=== PATIENT | female | born 1990 | race Caucasian/White ===

== ENCOUNTER 2016-10-26 23:54 | Emergency (ER) | payer SELFPAY ==
[~2016-10-26 23:54] MED LIST: PRENATAL COMPLE1 TAB PO; TYLENOL PM1 TAB PO
== END 2016-10-27 01:00 | disposition left against medical advice (07) ==
LOC: D.ER 23:54
DX: R10.30 Lower abdominal pain, unspecified (principal)

== ENCOUNTER 2017-02-02 17:32 | Emergency (ER) | payer MEDICAID ==
[2015-06-29 22:05] VITALS: BMI 23.4
[2017-02-02 18:42] LABS: BASOPHILS 0.2 % (0-2); EOSINOPHILS 0.5 % (0-7); HEMATOCRIT 41.1 % (36.0-48.0); HEMOGLOBIN 13.6 g/dL (12-16); IMMATURE GRANULOCYTES 0.2 % (0-5); LYMPHOCYTES 13.9 % (15-50); MCH 28.1 pg (26.0-34.0); MCHC 33.1 g/dL (31.0-37.0); MCV 84.9 fL (80.0-100.0); MEAN PLATELET VOLUME 12.1 fL (7.4-10.4); MONOCYTES 4.7 % (2-11); NEUTROPHILS 80.5 % (40-80); PLATELET COUNT 226 10x3/uL (130-400); RBC 4.84 10x6/uL (4.00-5.40); RDW 14.7 % (11.5-14.5)
[2017-02-02 18:50] LABS: ALBUMIN 3.9 g/dL (3.4-5.0); ALKALINE PHOSPHATASE 94 U/L (46-116); ALT (SGPT) 19 U/L (10-68); BILIRUBIN - TOTAL 0.43 mg/dL (0.2-1.3); CALC OSMOLALITY 277 mosm/kg (275-300); CALCIUM 8.8 mg/dL (8.5-10.1); CARBON DIOXIDE 26.7 mmol/L (21.0-32.0); CHLORIDE - SERUM 102 mmol/L (98-107); CREATININE - SERUM 0.9 mg/dL (0.6-1.3); GLUCOSE 94 mg/dL (74-106); SODIUM 139 mmol/L (136-145); UREA NITROGEN 13 mg/dL (7-18); eGFR NON AFRICAN AMERICAN 80 mL/min (90-120)
[2017-02-02 18:54] LABS: POTASSIUM - SERUM 2.8 mmol/L (3.5-5.1)
== END 2017-02-02 20:30 | disposition home or self-care (01) ==
LOC: D.ER 17:32
PROVIDERS: Physician Assistant Medical
DX: J06.9 Acute upper respiratory infection, unspecified (principal); R09.89 Other specified symptoms and signs involving the circulatory and respiratory systems; J34.89 Other specified disorders of nose and nasal sinuses; R06.2 Wheezing; R06.00 Dyspnea, unspecified; R51 Headache; F17.200 Nicotine dependence, unspecified, uncomplicated

== ENCOUNTER 2017-04-02 09:03 | Emergency (ER) | payer MEDICAID ==
[2015-06-29 22:05] VITALS: BMI 23.4
== END 2017-04-02 10:52 | disposition home or self-care (01) ==
LOC: D.ER 09:03
DX: S93.602A Unspecified sprain of left foot, initial encounter (principal); Y04.2XXA Assault by strike against or bumped into by another person, initial encounter; Y93.89 Activity, other specified; Y92.029 Unspecified place in mobile home as the place of occurrence of the external cause; F17.200 Nicotine dependence, unspecified, uncomplicated

== ENCOUNTER 2017-07-07 16:51 | Emergency (ER) | payer MEDICAID ==
[2015-06-29 22:05] VITALS: BMI 23.4
== END 2017-07-07 19:45 | disposition home or self-care (01) ==
LOC: D.ER 16:51
DX: J11.1 Influenza due to unidentified influenza virus with other respiratory manifestations (principal); R05 Cough; J45.909 Unspecified asthma, uncomplicated

== ENCOUNTER 2017-08-01 17:51 | Emergency (ER) | payer MEDICAID ==
[2015-06-29 22:05] VITALS: BMI 23.4
== END 2017-08-01 20:52 | disposition home or self-care (01) ==
LOC: D.ER 17:51
DX: S93.602A Unspecified sprain of left foot, initial encounter (principal); X58.XXXA Exposure to other specified factors, initial encounter; Y93.89 Activity, other specified; Y92.39 Other specified sports and athletic area as the place of occurrence of the external cause; S93.402A Sprain of unspecified ligament of left ankle, initial encounter

== ENCOUNTER → 2017-08-13 12:41 | Outpatient (CLI) | payer MEDICAID ==
[2015-06-29 22:05] VITALS: BMI 23.4
[2017-08-13 13:28] LABS: HEMATOCRIT 40.9 % (36.0-48.0); HEMOGLOBIN 13.4 g/dL (12-16); MCH 27.6 pg (26.0-34.0); MCHC 32.8 g/dL (31.0-37.0); MCV 84.2 fL (80.0-100.0); MEAN PLATELET VOLUME 11.6 fL (7.4-10.4); PLATELET COUNT 227 10x3/uL (130-400); RBC 4.86 10x6/uL (4.00-5.40); RDW 15.1 % (11.5-14.5)
[2017-08-13 14:50] LABS: ERYTHROCYTE SEDIMENTATION RATE 5 mm/hr (0-20)
[2017-08-14 11:18] LABS: ANA REFLEX - DIRECT Negative (Negative)
== END | disposition home or self-care (01) ==
LOC: D.LAB 12:41
PROVIDERS: Orthopaedic Surgery
DX: M13.0 Polyarthritis, unspecified (principal)

== ENCOUNTER → 2017-08-22 12:37 | Outpatient (CLI) | payer MEDICAID ==
[2015-06-29 22:05] VITALS: BMI 23.4
== END | disposition home or self-care (01) ==
LOC: D.MRI 08-20 13:00
DX: M25.572 Pain in left ankle and joints of left foot (principal); M25.372 Other instability, left ankle

== ENCOUNTER 2018-05-29 12:52 | Emergency (ER) | payer MEDICAID ==
[~2018-05-29] VITALS: Ht 158.8 cm; Wt 64.1 kg
[2018-05-29 13:48] VITALS: Ht 158.8 cm; Wt 64.1 kg
[2018-05-29 14:40] LABS: BASOPHILS 0.3 % (0-2); EOSINOPHILS 1.9 % (0-7); HEMATOCRIT 40.5 % (36.0-48.0); HEMOGLOBIN 13.6 g/dL (12-16); IMMATURE GRANULOCYTES 0.2 % (0-5); LYMPHOCYTES 24.4 % (15-50); MCH 29.5 pg (26.0-34.0); MCHC 33.6 g/dL (31.0-37.0); MCV 87.9 fL (80.0-100.0); MEAN PLATELET VOLUME 11.3 fL (7.4-10.4); MONOCYTES 6.8 % (2-11); NEUTROPHILS 66.4 % (40-80); PLATELET COUNT 236 10x3/uL (130-400); RBC 4.61 10x6/uL (4.00-5.40); RDW 13.2 % (11.5-14.5); WBC 6.3 10x3/uL (4.8-10.8)
[2018-05-29 14:51] LABS: APPEARANCE CLEAR (CLEAR); BILIRUBIN NEGATIVE (NEGATIVE); COLOR YELLOW (YELLOW); GLUCOSE NEGATIVE (NEGATIVE); KETONE NEGATIVE (NEGATIVE); NITRITE NEGATIVE (NEGATIVE); PROTEIN NEGATIVE (NEGATIVE); SPECIFIC GRAVITY 1.015 (1.005-1.020); UROBILINOGEN NORMAL (NORMAL)
[2018-05-29 14:53] LABS: ALBUMIN 3.7 g/dL (3.4-5.0); ALKALINE PHOSPHATASE 72 U/L (46-116); ALT (SGPT) 20 U/L (10-68); AMYLASE - SERUM 54 U/L (25-115); BILIRUBIN - TOTAL 0.42 mg/dL (0.2-1.3); CALC OSMOLALITY 274 mosm/kg (275-300); CALCIUM 8.7 mg/dL (8.5-10.1); CHLORIDE - SERUM 101 mmol/L (98-107); CREATININE - SERUM 0.6 mg/dL (0.6-1.3); GLUCOSE 84 mg/dL (74-106); LIPASE 90 U/L (73-393); POTASSIUM - SERUM 3.8 mmol/L (3.5-5.1); PROTEIN - SERUM 7.1 g/dL (6.4-8.2); SODIUM 138 mmol/L (136-145); UREA NITROGEN 12 mg/dL (7-18); eGFR NON AFRICAN AMERICAN > 90 mL/min (90-120)
[2018-05-29] MEDS ORDERED: COMPAZINE5 MG PO (20:19)
[2018-05-29] MEDS ORDERED: BENTYL 20 MG TA20 MG PO (20:19)
[2018-05-29] MEDS ORDERED: VOLTAREN75 MG PO (20:47)
[2018-05-29 21:29] VITALS: BP 116/72
== END 2018-05-29 21:29 | disposition home or self-care (01) ==
LOC: D.ER 12:52
PROVIDERS: Family Medicine
DX: N85.8 Other specified noninflammatory disorders of uterus (principal); F17.200 Nicotine dependence, unspecified, uncomplicated

== ENCOUNTER 2018-06-16 10:30 | Day surgery (SDC) | payer MEDICAID ==
[2018-06-13 13:07] LABS: BASOPHILS 0.3 % (0-2); EOSINOPHILS 2.3 % (0-7); HEMATOCRIT 39.6 % (36.0-48.0); HEMOGLOBIN 13.4 g/dL (12-16); IMMATURE GRANULOCYTES 0.2 % (0-5); LYMPHOCYTES 26.9 % (15-50); MCH 29.5 pg (26.0-34.0); MCHC 33.8 g/dL (31.0-37.0); MCV 87.2 fL (80.0-100.0); MEAN PLATELET VOLUME 11.4 fL (7.4-10.4); NEUTROPHILS 64.3 % (40-80); PLATELET COUNT 196 10x3/uL (130-400); RBC 4.54 10x6/uL (4.00-5.40); RDW 12.6 % (11.5-14.5); WBC 6.1 10x3/uL (4.8-10.8)
[~2018-06-16] VITALS: Ht 160 cm; Wt 64.4 kg
--- NOTE | ~2018-06-16 | OP ---
PATIENT NAME: MARIA G RICHARDSON MEDICAL RECORD: [id number] :89 LOCATION:D.OPS ADMISSION DATE: SURGEON: MARGARITA VASQUEZ MD DATE OF OPERATION: 06/16/2018 PREOPERATIVE DIAGNOSIS: Pelvic pain. POSTOPERATIVE DIAGNOSES: 1. Right simple cyst. 2. Adhesive disease. 3. Necrotic cyst or Morgagni of the right tube. PROCEDURES: 1. Diagnostic laparoscopy. 2. Ovarian cystectomy. 3. Removal of necrotic system or Morgagni, SURGEON: Margarita Vasquez MD METAL BONDING PRESS OPERATOR: Tomas Díaz. ANESTHESIOLOGIST: Dr. Veronica. ANESTHESIA: General. FINDINGS: Uterus is enlarged and boggy. Both tubes were interrupted bilaterally. The right ovary has a 3-4 cm cyst. Left ovary is unremarkable. A cyst Morgagni was noted to be on the right tube and it was necrotic. Otherwise, anatomy was unremarkable. ESTIMATED BLOOD LOSS: Minimal. FLUIDS: 800 cc lactated Ringer's. URINE OUTPUT: Quantity sufficient void prior to this procedure. COMPLICATIONS: None. DRAINS: None. INDICATIONS: The patient is a 27-year-old female with pelvic pain, dyspareunia and dysmenorrhea. The patient has been consented for diagnostic laparoscopy and any indicated procedure. The patient has been on control in the past. DESCRIPTION OF PROCEDURE: After informed consent was assured, the patient was taken to the operating room where anesthetic was obtained without difficulty. The patient was prepped and draped. An incision was made at the umbilicus. The scope was now introduced to the abdomen and pneumoperitoneum developed. Accessory ports placed 2 fingerbreadths above the symphysis. Through this port, a blunt probe was used to lift the bowel out of the pelvis with the above findings. Monopolar setting of 20 Martinez was used with a monopolar hook to open the ovarian cyst. The [place] graspers are used to widen this incision and extract the cyst wall segment. After the cyst has been addressed of the ovary, adhesions are investigated on the left side of the bowel to the left ovary. These were dense adhesions and are not taken down at this time. On the OPERATIVE REPORT [id number] MARIA G RICHARDSON patient's right hand side, a cyst of Morgagni was noted on the tube. It was torsed with necrosis. This was removed with monopolar cautery. Pneumoperitoneum was now released and accessory port removed under direct visualization. The primary port was removed. All sites closed with subcuticular stitch and Dermabond. Sponge, lap, and needle counts correct times 2. TRANSINT:[id number] Voice Confirmation ID: [id number] DOCUMENT ID: [id number] MARGARITA VASQUEZ MD at 1248 CC: [id number] DICTATION DATE: 06/16/18 1447 CONSUMER INSIGHT ANALYST: 06/16/18 1637 [facility] [place] 06/16/18 [id number] [place] [address]
[~2018-06-16 10:30] MED LIST changes: +BENTYL 20 MG TA20 MG PO; +COMPAZINE5 MG PO; +ULTRAM50 MG PO; +VOLTAREN75 MG PO
[2018-06-16 12:38] LABS: HCG URINE NEGATIVE (NEGATIVE)
[2018-06-16 12:41] VITALS: BP 114/66; Ht 160 cm; Wt 64.4 kg
== END 2018-06-16 16:50 | disposition home or self-care (01) ==
LOC: D.OPS 10:30 → D.PAN 12:40 → D.OPS 12:45
PROVIDERS: Obstetrics & Gynecology
DX: N83.291 Other ovarian cyst, right side (principal); N83.8 Other noninflammatory disorders of ovary, fallopian tube and broad ligament; N94.10 Unspecified dyspareunia; N94.6 Dysmenorrhea, unspecified; Z01.812 Encounter for preprocedural laboratory examination

== ENCOUNTER 2018-08-25 05:50 | Day surgery (SDC) | payer MEDICAID ==
[2018-08-22 10:52] LABS: BASOPHILS 0.5 % (0-2); EOSINOPHILS 1.4 % (0-7); HEMATOCRIT 41.7 % (36.0-48.0); HEMOGLOBIN 13.9 g/dL (12-16); IMMATURE GRANULOCYTES 0.2 % (0-5); LYMPHOCYTES 25.8 % (15-50); MCH 28.5 pg (26.0-34.0); MCHC 33.3 g/dL (31.0-37.0); MCV 85.5 fL (80.0-100.0); MEAN PLATELET VOLUME 11.2 fL (7.4-10.4); MONOCYTES 8.6 % (2-11); NEUTROPHILS 63.5 % (40-80); PLATELET COUNT 228 10x3/uL (130-400); RBC 4.88 10x6/uL (4.00-5.40); RDW 13.2 % (11.5-14.5); WBC 5.8 10x3/uL (4.8-10.8)
[2018-08-22 11:07] LABS: CALC OSMOLALITY 276 mosm/kg (275-300); CALCIUM 8.4 mg/dL (8.5-10.1); CHLORIDE - SERUM 103 mmol/L (98-107); CREATININE - SERUM 0.7 mg/dL (0.6-1.3); GLUCOSE 78 mg/dL (74-106); POTASSIUM - SERUM 3.6 mmol/L (3.5-5.1); SODIUM 139 mmol/L (136-145); UREA NITROGEN 13 mg/dL (7-18); eGFR NON AFRICAN AMERICAN > 90 mL/min (90-120)
[~2018-08-25] VITALS: Ht 160 cm; Wt 67.1 kg
--- NOTE | ~2018-08-25 | OP ---
PATIENT NAME: MARIA G RICHARDSON MEDICAL RECORD: [id number] :89 LOCATION:D.OPS ADMISSION DATE: SURGEON: MARGARITA VASQUEZ MD DATE OF OPERATION: 08/25/2018 PREOPERATIVE DIAGNOSES: 1. Dysmenorrhea. 2. Pelvic pain. POSTOPERATIVE DIAGNOSES: 1. Dysmenorrhea. 2. Pelvic pain. 3. Suspect adenomyosis. 4. Pelvic adhesions. PROCEDURES PERFORMED: 1. Diagnostic laparoscopy. 2. Lysis of adhesions. 3. Bilateral salpingectomy. 4. Laparoscopic subtotal hysterectomy. SURGEON: Margarita Vasquez MD ORDNANCE ENGINEER: Dr. Isaacs. ANESTHESIOLOGIST: Dr. Veronica. FINDINGS: The left ovary is adhered to the sidewall. The bladder is adhered anteriorly. The uterus is enlarged and boggy. Other than an left ovarian adhesion, the pelvis is unremarkable. What was visualized of the abdominal anatomy was also unremarkable. SPECIMENS REMOVED: 1. Bilateral tubes. 2. Uterus morcellated. SPECIMEN DISPOSITION: All specimens to pathology. ESTIMATED BLOOD LOSS: 200 cc. FLUIDS: 1500 cc of lactated Ringer's. URINE OUTPUT: 100 cc of clear urine. COMPLICATIONS: None. DRAIN: Sanchez to gravity. INDICATIONS: The patient is a 27-year-old female with intense dysmenorrhea, dyspareunia and chronic pelvic pain. The patient has tried conservative therapy without relief of symptoms. The patient's pain is beginning to interfere with events of daily living and impact interpersonal relationships. The patient is consented for diagnostic laparoscopy, laparoscopic subtotal hysterectomy with bilateral salpingectomy and any indicated procedure. OPERATIVE REPORT [id number] MARIA G RICHARDSON DESCRIPTION OF PROCEDURE: After informed consent was assured, the patient was taken to the operating room where anesthetic was obtained. The patient having been placed supine on the table, was prepped and draped. An incision was made at the umbilicus to accommodate a 5-mm trocar, which was inserted without difficulty. Pneumoperitoneum was now developed and the patient was placed in steep Trendelenburg position. Accessory ports were placed in the right and left lower quadrant. Left lower quadrant port was a 5-mm port. The right lower quadrant port was a 12-mm port. Through the right port, a grasper was inserted and the left tube was elevated. The ovary was adhesed to the sidewall and tissues and these adhesions were taken down. The left tube was removed from its attachment to the mesosalpinx. The dissection was carried out over the right uteroovarian ligament and round ligaments. The anterior leaf of the broad ligament was opened and dissection continued anteriorly. The adhesions of the bladder to the uterus were taken down and the bladder flap developed to the midline. The posterior leaf of the broad ligament was now opened and the vessels of the left side skeletonized. The vessels were now compressed, coagulated, and . This was performed at the level of the internal os. Attention was now directed to the right side where the right tube was elevated in a like fashion. The dissection was carried out underneath the right tube across the uteroovarian ligament and round ligaments. The broad ligament was opened and the anterior leaf dissected down to where the bladder flap was now fully developed. Posteriorly, the tissues were dissected free, the vessels identified at the level of the internal os and they were compressed, coagulated, and . Dissection now begins of the uterus from the cervix. This begins on the right and concludes on the left. Once the uterus has been removed using a reverse cone method with Harmonic scalpel, uterus was placed in the cul-de-sac. The endocervical canal was now cauterized. After cautery of the endocervical canal, the 10-12 port was removed from the right lower quadrant and the PlasmaSORD was inserted. The uterus and tube and tubes were removed through this device. Once the uterus has been removed, inspection of the pelvis shows adequate hemostasis. Interceed was placed over the cervical stump. Prior to the Interceed being placed, the pelvis was irrigated and all straight portions of the uterus were removed with graspers. Pneumoperitoneum was released as the accessory ports were removed. The subcuticular stitch was applied to both the accessory port sites. The primary port has been removed and a subcuticular stitch was applied here as well. Dermabond was applied to all surgical sites. Sponge, lap, needle counts were correct times 2. The patient was awakened and went to the recovery area in stable condition. TRANSINT:[id number] Voice Confirmation ID: [id number] DOCUMENT ID: [id number] MARGARITA VASQUEZ MD CC: [id number] DICTATION DATE: 09/11/18926 NIGHT STOCKER: 09/11/18 1032 [facility] 08/25/18 [id number] [place] [address]
[2018-08-25 06:24] VITALS: BP 105/61; Ht 160 cm; Wt 67.1 kg
[2018-08-25] MEDS ORDERED: CYCLOBENZAPRINE10 MG PO (06:45)
[2018-08-25 06:52] LABS: HCG URINE NEGATIVE (NEGATIVE)
[2018-08-25 10:10] VITALS: BP 117/60
--- NOTE | 2018-08-25 10:10 | NUR ---
received from recovery by bed she is awake and alert, able to move herself over to room bed, rates pain at 5/10. Saline lock to right hand patent and pt denies tenderness. Abdomen soft to touch and no discharge noted. Pt asking about her sig other and request that he be notified of her room. Also requesting large ice water.
--- NOTE | 2018-08-25 10:19 | NUR ---
ATTEMPTED TO LOCATE PATIENT'S QASIM DUNN. WAS UNABLE TO LOCATE IN L&D WAITING, OUTPATIENT WAITING, [facility], AND PREVIOUS OUTPATIENT ROOM. CALLED L&D TO NOTIFY.
--- NOTE | 2018-08-25 10:40 | NUR ---
Sig other at bedside, pt resting with eyes closed and no distress noted. Side rails up x 2 with call light in reach.
--- NOTE | 2018-08-25 11:00 | NUR ---
called to room, pt requesting to get up to void. no assistance needed, able to void 100ml. Large cup of ice and crackers per request. Denies nausea at this time.
[2018-08-25] MEDS ORDERED: MOBIC7.5 MG PO (11:13)
[2018-08-25] MEDS ORDERED: NEURONTIN 300300 MG PO (11:14)
[2018-08-25] MEDS ORDERED: PERCOCET 7.5/321 TAB PO (11:14)
--- NOTE | 2018-08-25 11:40 | NUR ---
Called to room, pt sitting up on side of bed dressed and request discharge now, states that she voided again, 300ml noted to collection hat. Saline lock removed intact. Verbal and written discharge gone over to included written scripts. pt states understanding and denies any questions or concerns. Volunteer notified for wheelchair.
--- NOTE | 2018-08-25 11:50 | NUR ---
Percocet 5/325mg given po per pt request. Taken out by wheelchair home by private car with family.
== END 2018-08-25 11:50 | disposition home or self-care (01) ==
LOC: D.OPS 05:50 → D.PAN 07:30 → D.OPS 07:30 → D.LD 10:09 → D.OPS 11:50
PROVIDERS: ATTEND Obstetrics & Gynecology
DX: R10.2 Pelvic and perineal pain (principal); N94.6 Dysmenorrhea, unspecified; K66.0 Peritoneal adhesions (postprocedural) (postinfection)

== ENCOUNTER 2018-08-31 06:19 | Emergency (ER) | payer MEDICAID ==
[~2018-08-31] VITALS: Ht 160 cm; Wt 68.2 kg
[~2018-08-31 06:19] MED LIST changes: +CYCLOBENZAPRINE10 MG PO; +MOBIC7.5 MG PO; +NEURONTIN 300300 MG PO; +PERCOCET 7.5/321 TAB PO
[2018-08-31 06:29] VITALS: Ht 160 cm; Wt 68.2 kg
[2018-08-31 06:50] LABS: BASOPHILS 0.1 % (0-2); EOSINOPHILS 0.6 % (0-7); HEMATOCRIT 42.2 % (36.0-48.0); HEMOGLOBIN 14.6 g/dL (12-16); IMMATURE GRANULOCYTES 0.1 % (0-5); LYMPHOCYTES 10.1 % (15-50); MCHC 34.6 g/dL (31.0-37.0); MCV 83.9 fL (80.0-100.0); MEAN PLATELET VOLUME 11.2 fL (7.4-10.4); MONOCYTES 4.7 % (2-11); NEUTROPHILS 84.4 % (40-80); RBC 5.03 10x6/uL (4.00-5.40); RDW 13.4 % (11.5-14.5)
[2018-08-31 06:55] LABS: PLATELET COUNT 278 10x3/uL (130-400)
[2018-08-31 07:31] LABS: ALBUMIN 3.9 g/dL (3.4-5.0); ALKALINE PHOSPHATASE 139 U/L (46-116); ALT (SGPT) 77 U/L (10-68); AMYLASE - SERUM 117 U/L (25-115); BILIRUBIN - TOTAL 0.52 mg/dL (0.2-1.3); CALC OSMOLALITY 276 mosm/kg (275-300); CARBON DIOXIDE 21.7 mmol/L (21.0-32.0); CHLORIDE - SERUM 101 mmol/L (98-107); CREATININE - SERUM 0.8 mg/dL (0.6-1.3); GLUCOSE 118 mg/dL (74-106); LIPASE 462 U/L (73-393); POTASSIUM - SERUM 3.6 mmol/L (3.5-5.1); PROTEIN - SERUM 8.1 g/dL (6.4-8.2); SODIUM 137 mmol/L (136-145); UREA NITROGEN 19 mg/dL (7-18); eGFR NON AFRICAN AMERICAN 90 mL/min (90-120)
[2018-08-31 08:25] LABS: APPEARANCE CLEAR (CLEAR); BILIRUBIN NEGATIVE (NEGATIVE); COLOR YELLOW (YELLOW); GLUCOSE NEGATIVE (NEGATIVE); KETONE NEGATIVE (NEGATIVE); NITRITE NEGATIVE (NEGATIVE); PROTEIN NEGATIVE (NEGATIVE); UROBILINOGEN NORMAL (NORMAL)
[2018-08-31 08:27] LABS: BACTERIA FEW /hpf (NONE SEEN); EPITHELIAL CELLS 0-5 /hpf (0-5); RED CELLS - URINE 0-5 /hpf (0-5); WHITE CELLS - URINE 0-5 /hpf (0-5)
[2018-08-31] MEDS ORDERED: DOXYCYCLINE HY100 M2 PO (10:26)
[2018-08-31] MEDS ORDERED: FLAGYL500 MG PO (10:26)
[2018-08-31 11:02] VITALS: BP 113/64
== END 2018-08-31 11:03 | disposition home or self-care (01) ==
LOC: D.ER 06:19
PROVIDERS: Family Medicine
DX: K59.00 Constipation, unspecified (principal); R10.30 Lower abdominal pain, unspecified; D72.829 Elevated white blood cell count, unspecified

== ENCOUNTER 2019-12-01 20:51 | Emergency (ER) | payer OTHER ==
[~2019-12-01] VITALS: Ht 160 cm; Wt 54.5 kg
[~2019-12-01 20:51] MED LIST changes: +CIPRO500 MG PO; +DOXYCYCLINE HY100 M2 PO; +FLAGYL500 MG PO; +PROBIOTIC1 EAC1 PO
[2019-12-01 20:55] VITALS: Ht 160 cm; Wt 54.5 kg
[2019-12-01 21:14] LABS: BASOPHILS 0.2 % (0-2); EOSINOPHILS 1.7 % (0-7); HEMATOCRIT 46.7 % (36.0-48.0); HEMOGLOBIN 15.7 g/dL (12-16); IMMATURE GRANULOCYTES 0.2 % (0-5); LYMPHOCYTES 22.1 % (15-50); MCHC 33.6 g/dL (31.0-37.0); MCV 89.1 fL (80.0-100.0); MEAN PLATELET VOLUME 10.8 fL (7.4-10.4); MONOCYTES 7.4 % (2-11); NEUTROPHILS 68.4 % (40-80); RBC 5.24 10x6/uL (4.00-5.40); WBC 14.1 10x3/uL (4.8-10.8)
[2019-12-01 21:25] LABS: CALC OSMOLALITY 280 mosm/kg (275-300); CALCIUM 9.3 mg/dL (8.5-10.1); CARBON DIOXIDE 28.3 mmol/L (21.0-32.0); CHLORIDE - SERUM 100 mmol/L (98-107); CREATININE - SERUM 0.9 mg/dL (0.6-1.3); GLUCOSE 108 mg/dL (74-106); POTASSIUM - SERUM 3.7 mmol/L (3.5-5.1); SODIUM 139 mmol/L (136-145); UREA NITROGEN 18 mg/dL (7-18); eGFR NON AFRICAN AMERICAN 78 mL/min (90-120)
[2019-12-01 21:31] LABS: ALBUMIN 4.1 g/dL (3.4-5.0); ALKALINE PHOSPHATASE 108 U/L (30-120); ALT (SGPT) 30 U/L (10-68); BILIRUBIN - TOTAL 0.21 mg/dL (0.2-1.3); PLATELET COUNT 337 10x3/uL (130-400); PROTEIN - SERUM 8.3 g/dL (6.4-8.2)
[2019-12-01] MEDS ORDERED: HYDROCODON-ACE1 EAC7 PO (22:38)
[2019-12-01] MEDS ORDERED: NAPROSYN500 MG PO (22:38)
[2019-12-01 23:04] VITALS: BP 129/87
== END 2019-12-01 23:04 | disposition home or self-care (01) ==
LOC: D.ER 20:51
PROVIDERS: Family Medicine
DX: S03.2XXA Dislocation of tooth, initial encounter (principal); S06.0X9A Concussion with loss of consciousness of unspecified duration, initial encounter; Y04.8XXA Assault by other bodily force, initial encounter; Y93.9 Activity, unspecified; Y92.9 Unspecified place or not applicable; R68.84 Jaw pain; R51 Headache; M54.2 Cervicalgia

== ENCOUNTER 2020-04-19 09:05 | Emergency (ER) | payer OTHER ==
[~2020-04-19] VITALS: Ht 160 cm; Wt 59.1 kg
[~2020-04-19 09:05] MED LIST changes: +HYDROCODON-ACE1 EAC7 PO; +NAPROSYN500 MG PO
[2020-04-19 09:10] VITALS: Ht 160 cm; Wt 59.1 kg
[2020-04-19] MEDS ORDERED: CLEOCIN HCL300 MG PO (10:12)
[2020-04-19] MEDS ORDERED: HYDROXYZINE HCL50 MG PO (10:12)
[2020-04-19] MEDS ORDERED: PERMETHRIN60 GM TOPICAL (10:12)
[2020-04-19 10:41] VITALS: BP 134/76
== END 2020-04-19 10:30 | disposition home or self-care (01) ==
LOC: D.ER 09:05
DX: B86 Scabies (principal); F15.10 Other stimulant abuse, uncomplicated

== ENCOUNTER 2020-08-27 22:18 | Emergency (ER) | payer OTHER ==
[~2020-08-27] VITALS: Ht 160 cm; Wt 52.3 kg
[~2020-08-27 22:18] MED LIST changes: +BENADRYL25 MG PO; +CLEOCIN HCL300 MG PO; +HYDROXYZINE HCL50 MG PO; +MUPIROCIN15 GM TOPICAL; +PERMETHRIN60 GM TOPICAL
[2020-08-27 22:22] VITALS: BP 108/75; Ht 160 cm; Wt 52.3 kg
[2020-08-27] MEDS ORDERED: PAXIL40 MG PO ×2 (22:24→23:31)
[2020-08-27] MEDS ORDERED: METHOCARBAMOL500 MG PO (22:24)
[2020-08-27] MEDS ORDERED: NEURONTIN600 MG PO (22:24)
[2020-08-27] MEDS ORDERED: TRAZODONE HCL100 MG PO (22:25)
[2020-08-28] MEDS ORDERED: CYCLOBENZAPRINE10 MG PO (12:39)
[2020-08-28] MEDS ORDERED: VOLTAREN75 MG PO (12:39)
== END 2020-08-28 00:19 | disposition home or self-care (01) ==
LOC: D.ER 22:18
DX: S02.609A Fracture of mandible, unspecified, initial encounter for closed fracture (principal); G89.29 Other chronic pain; F32.9 Major depressive disorder, single episode, unspecified; X58.XXXA Exposure to other specified factors, initial encounter

== ENCOUNTER 2020-08-28 10:31 | Emergency (ER) | payer OTHER ==
[~2020-08-28] VITALS: Ht 160 cm; Wt 68.2 kg
[~2020-08-28 10:31] MED LIST changes: +METHOCARBAMOL500 MG PO; +NEURONTIN600 MG PO; +PAXIL40 MG PO; +TRAZODONE HCL100 MG PO
[2020-08-28 10:42] VITALS: BP 111/60; Ht 160 cm; Wt 68.2 kg
[2020-08-28 10:48] LABS: BASOPHILS 0.4 % (0-2); EOSINOPHILS 2.4 % (0-7); HEMATOCRIT 39.8 % (36.0-48.0); HEMOGLOBIN 12.9 g/dL (12-16); IMMATURE GRANULOCYTES 0.2 % (0-5); LYMPHOCYTE ABS# 1.38 10x3/uL (1.18-3.74); LYMPHOCYTES 16.5 % (15-50); MCH 29.4 pg (26.0-34.0); MCHC 32.4 g/dL (31.0-37.0); MCV 90.7 fL (80.0-100.0); MEAN PLATELET VOLUME 10.5 fL (7.4-10.4); MONOCYTES 9.2 % (2-11); NEUTROPHIL ABS# 5.94 10x3/uL (1.56-6.13); NEUTROPHILS 71.3 % (40-80); PLATELET COUNT 201 10x3/uL (130-400); RBC 4.39 10x6/uL (4.00-5.40); RDW 13.6 % (11.5-14.5); WBC 8.3 10x3/uL (4.8-10.8)
[2020-08-28 10:57] LABS: CALC OSMOLALITY 277 mosm/kg (275-300); CALCIUM 8.7 mg/dL (8.5-10.1); CHLORIDE - SERUM 106 mmol/L (98-107); CREATININE - SERUM 0.8 mg/dL (0.6-1.3); GLUCOSE 92 mg/dL (74-106); POTASSIUM - SERUM 4.3 mmol/L (3.5-5.1); SODIUM 138 mmol/L (136-145); UREA NITROGEN 17 mg/dL (7-18); eGFR NON AFRICAN AMERICAN 89 mL/min (90-120)
[2020-08-28 11:04] LABS: ALBUMIN 3.4 g/dL (3.4-5.0); ALKALINE PHOSPHATASE 93 U/L (30-120); ALT (SGPT) 20 U/L (10-68); BILIRUBIN - TOTAL 0.12 mg/dL (0.2-1.3); PROTEIN - SERUM 6.6 g/dL (6.4-8.2)
[2020-08-28 11:10] LABS: HCG SERUM NEGATIVE (NEGATIVE)
[2020-08-28] MEDS ORDERED: CYCLOBENZAPRINE10 MG PO (12:39)
[2020-08-28] MEDS ORDERED: VOLTAREN75 MG PO (12:39)
== END 2020-08-28 13:06 | disposition home or self-care (01) ==
LOC: D.ER 10:31
PROVIDERS: Family Medicine
DX: R68.84 Jaw pain (principal); R51.9 Headache, unspecified